=== PATIENT | female | born 2000 | race African-American/Black ===

== ENCOUNTER 2021-04-21 13:57 | Emergency (ER) | payer SELFPAY ==
--- OUTSIDE RECORDS SUMMARY | 2021-04-21 13:58 | XMS REPORT | Continuity of Care Document ---
:2000 Author Organization [facility] t Address [address] [place] [address] Care Team Providers Name Role Phone Liz Dennison Attending Clinician Problems This patient has no known problems. Allergies, Adverse Reactions, Alerts This patient has no known allergies or adverse reactions. Medications This patient has no known medications. Procedures This patient has no known procedures. Encounters Start End Encounter Admission Attending Care Care Encounter Source Date/Time Date/Time Type Type Clinicians Facility Department ID 2021-04-19 2021-04-19 Emergency JOB [facility] [id number] 14:19:00 18:07:00 Liz Torres [id number] [place] [id number] [place] [id number] Results This patient has no known results.
--- NOTE | 2021-04-21 14:37 | ER ---
Nurse's Notes [facility] Name: Martha Hernandez Age: 20 yrs Sex: Female : 2000 Arrival Date: 04/21/2021 Time: 13:57 Bed Waiting Private MD: Diagnosis: Presentation: 04/21 14:00 Chief complaint: EMS states: Diagnosed with Diabetes and UTI yesterday at [facility] [place], c/o N/V and abd cramping that began 30 minutes ago. Started menstrual cycle today but has never had cramps. Prescribed Metformin, but has not yet picked up her RX. Onset of symptoms. Care prior to arrival: Medication(s) given: NS 300 mL IV initiated. 20 GA, in the left antecubital area, Glucose check: 347. 14:00 Method Of Arrival: EMS: [facility] 14:00 Acuity: TRISH 3 ss DIET KITCHEN COOK: 14:31 LMP 04/21/2021 kg Screenin:32 Abuse screen: Denies threats or abuse. Denies injuries from another. Nutritional kg screening: No deficits noted. Tuberculosis screening: No symptoms or risk factors identified. Fall Risk None identified. Vital Signs: 14:31 BP 127 / 79; Pulse 71; Resp 71; Temp 98.1(O); Pulse Ox 100% on R/A; Weight 77.11 kg kg (R); Height 5 ft. 0 in. (152.40 cm) (R); Pain 0/10; 14:31 Body Mass Index 33.20 (77.11 kg, 152.40 cm) kg ED Course: 13:57 Patient arrived in ED. as 14:00 Maintain EMS IV. Dressing intact. Good blood return noted. Site clean \T\ dry. Gauge \T\ kg site: 20 L AC. 14:04 Triage completed. ss 14:36 IV discontinued, intact, bleeding controlled, No redness/swelling at site. Pressure kg dressing applied. Administered Medications: No medications were administered Outcome: 14:37 Patient left the ED. kg Signatures: Addis Marie Shelby, RN RN Aubrie Montana RN RN kg
[2021-04-21 16:37] LABS: Urine Blood 3+ (Negative); Urine Glucose 3+ (Negative); Urine Protein 2+ (Negative)
[2021-04-22 10:45] VITALS: BP 127/79; TEMP 98.1; O2SAT 100
== END 2021-04-21 14:37 | disposition left against medical advice (07) ==
LOC: ER 13:57
DX: Z53.21 Procedure and treatment not carried out due to patient leaving prior to being seen by health care provider (principal)
CPT/HCPCS: 81003; 82947; 99282